=== PATIENT | male | born 1970 | race Caucasian/White ===

== ENCOUNTER 2017-05-06 12:12 | Emergency (ER) | payer SELFPAY ==
[2017-05-06] MEDS ORDERED: LIDOCAINE 2% VISCOUS SOLN 20 ML UDCUP PO ONE (12:49)
[2017-05-06] MEDS ORDERED: PENICILLIN V POTASSIUM 500 MG TABLET PO ONE (12:49)
--- NOTE | 2017-05-06 12:56 | ER Document Report ---
ED Oral Problem - General Chief Complaint: Dental Injury Stated Complaint: MOUTH PAIN Time Seen by Provider: 05/06/17 12:36 Mode of Arrival: Ambulatory Information source: Patient Notes: 36-year-old male presents to ED for dental pain in the bottom tooth 22, 23, 24, and 25. These are the only teeth left in his mouth. He states that the pain started on but got much worse today. He states he is in the process of removing all of his teeth and getting dentures. He is in [place] right now visiting family but plans to return to [place] on Monday. Plans to go to the dentist when he returns home on Monday. TRAVEL OUTSIDE OF THE [place] 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 Lives with: Family Family History: Arthritis, CAD, CVA, DM, Hyperlipidemia, Hypertension, Malignancy Patient has suicidal ideation: No Patient has homicidal ideation: No - Past Medical History Cardiac Medical History: Reports: Hx Hypertension Pulmonary Medical History: Reports: None EENT Medical History: Reports: None Neurological Medical History: Reports: None Endocrine Medical History: Reports: None Renal/ Medical History: Reports: None Malignancy Medical History: Reports None GI Medical History: Reports: None Musculoskeltal Medical History: Reports Hx Musculoskeletal Trauma Skin Medical History: Reports None Psychiatric Medical History: Reports: None Traumatic Medical History: Reports: None Infectious Medical History: Reports: None Past Surgical History: Reports: Hx Orthopedic Surgery - knee surgery - Immunizations Immunizations up to date: Yes Review of Systems - Review of Systems Constitutional: No symptoms reported EENT: Mouth pain Cardiovascular: No symptoms reported Respiratory: No symptoms reported Gastrointestinal: No symptoms reported Genitourinary: No symptoms reported Male Genitourinary: No symptoms reported Musculoskeletal: No symptoms reported Skin: No symptoms reported Hematologic/Lymphatic: No symptoms reported Neurological/Psychological: No symptoms reported -: Yes All other systems reviewed and negative Physical Exam - Vital signs Vitals: Temp Pulse Resp BP Pulse Ox 99.2 F 88 17 184/122 H 99 05/06/17 12:17 05/06/17 12:17 05/06/17 12:17 05/06/17 12:17 05/06/17 12:17 Interpretation: Normal - General General appearance: Appears well, Alert - HEENT Head: Normocephalic, Atraumatic Eyes: Normal Pupils: PERRL Ears: Normal External canal: Normal Tympanic membrane: Normal Sinus: Normal Nasal: Normal Mouth/Lips: Caries Mucous membranes: Normal Teeth diagram: 1 - He is very decayed broken off at the gumline these are the only teeth left in his mouth he is in the process of getting all his teeth removed and dentures. Pharynx: Normal Neck: Normal - Respiratory Respiratory status: No respiratory distress Chest status: Nontender Breath sounds: Normal Chest palpation: Normal - Cardiovascular Rhythm: Regular Heart sounds: Normal auscultation Murmur: No - Abdominal Inspection: Normal Distension: No distension Bowel sounds: Normal Tenderness: Nontender Organomegaly: No organomegaly - Back Back: Normal, Nontender - Extremities General upper extremity: Normal inspection, Nontender, Normal color, Normal ROM , Normal temperature General lower extremity: Normal inspection, Nontender, Normal color, Normal ROM , Normal temperature, Normal weight bearing. No: Maury's sign - Neurological Neuro grossly intact: Yes Cognition: Normal Orientation: AAOx4 [place] Coma Scale Eye Opening: Spontaneous [place] Coma Scale Verbal: Oriented [place] Coma Scale Motor: Obeys Commands [place] Coma Scale Total: 15 Speech: Normal Motor strength normal: LUE, RUE, LLE, RLE Sensory: Normal - Psychological Associated symptoms: Normal affect, Normal mood - Skin Skin Temperature: Warm Skin Moisture: Dry Skin Color: Normal Course - Vital Signs Vital signs: Temp Pulse Resp BP Pulse Ox 99.2 F 80 18 182/126 H 100 05/06/17 12:17 05/06/17 13:07 05/06/17 13:07 05/06/17 13:07 05/06/17 13:07 Discharge - Discharge Clinical Impression: Pain due to dental caries Additional Instructions: TOOTHACHE: Your pain is due to dental decay. The tooth must be repaired in order for you to feel better. You will, therefore, be referred to a dentist. We do not have dentists on the staff at [facility]. Severe swelling or drainage around a tooth usually means a dental abscess. This also requires evaluation and treatment by the dentist, but antibiotics may be prescribed while awaiting dental treatment. You should be rechecked immediately if you develop major swelling of the face, increasing pain, a lump in the jaw or gums, headache, difficulty swallowing, or fever. PENICILLIN V K: You have been given a prescription for Penicillin VK. Your physician has determined that this is the best antibiotic for your condition. Pen VK can be taken with meals, however more of the antibiotic gets into the bloodstream if it's taken on an empty stomach. Penicillin usually has no side effects. However, allergy to penicillins is common. If you have had an allergic reaction to any drug of the penicillin family, you should never take any other penicillin. Notify your doctor at once if you develop hives, itching, swelling, faintness, or shortness of breath. You were given a dose of lisinopril in the emergency room. Check your blood pressure around 10:00 tonight if your blood pressure is more than 130/ more than 70 week take your lisinopril tonight scheduled. Please call your primary doctor Monday to schedule a follow-up appointment for your blood pressure when you get home to [place]. Please call your dentist on Monday to schedule a dental appointment for him as soon as you get back to [place]. You can use the lidocaine jelly for your dental pain every 4-6 hours as you have been instructed. FOLLOW-UP CARE: You have been referred for follow-up care to the dentists listed below. Call the dentists office for an appointment as you were instructed or within the next two days. If you experience worsening or a significant change in your symptoms, notify the physician immediately or return to the Emergency Department at any time for re-evaluation. [facility] [address] [place] [address], [address] [facility] [address] [facility] [address] [email or web address] [address] [place] [address] Monday- 8:00am to 5:00 pm [facility] other [facility]. Charges based on income and family size and accepts Medicare, Medicaid, and Insurances Will pull molars [facility] [id number] Hours of Operation 8:00 am - 4:30 pm weekdays The following dental offices accept Medicaid: [facility] Dr. Archibald Dr. Soriano Dr. Olsen Dr. Panda Art Myles Lutsavage, and Omar oral surgery Dr. Dacosta ([place]) Dr. Gordon ([place]) [facility] Drs. Salvador and Alexandro ([place]) Dr. Garg ([place]) [facility] Dr. Jaquez ([place]) Drs. Beckford and ([place]) Medicaid Care Line Prescriptions: Penicillin V Potassium [Penicillin Vk 500 mg Tablet] 500 mg PO BID #20 tablet Forms: Elevated Blood Pressure
[2017-05-06] MEDS ORDERED: LISINOPRIL 10 MG TABLET PO ONE (12:57)
[2017-05-06 13:09] VITALS: BP 182/126
[2017-05-06] MEDS ORDERED: OXYCODONE-ACETAMINOPHEN 5-325 MG TABLET PO ONE (13:13)
== END 2017-05-06 13:16 | disposition home or self-care (01) ==
LOC: ER 12:12
DX: K02.9 Dental caries, unspecified (principal); K08.89 Other specified disorders of teeth and supporting structures
CPT/HCPCS: 99282; J3490